=== PATIENT | female | born 1930 | race Caucasian/White ===

== ENCOUNTER 2017-11-09 13:55 | Inpatient (IN) ==
[2017-11-09] MEDS ORDERED: PHENERGAN 25 MG/ML VIAL 12.5 MG in SODIUM CHLORIDE 50 ML IV STA (14:17)
[2017-11-09] MEDS ORDERED: PHENERGAN 25 MG/ML VIAL ONE (14:20)
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
[2017-11-09] MEDS ORDERED: NORCO 10-325 PO STA (16:51)
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
[2017-11-09] MEDS ORDERED: MORPHINE 4 MG/ML SYRINGE IVP PRN (17:18)
[2017-11-09] MEDS: SODIUM CHLORIDE 1,000 ML IV SCH (17:54)
[2017-11-09 18:14] VITALS: BMI 24.4
[2017-11-09] MEDS: NORCO 10-325 PO PRN (21:05)
[2017-11-10] MEDS: NORCO 10-325 PO PRN ×5 (00:56→22:02)
[2017-11-10] MEDS: CREON DR 12,000 UNITS CAPSULE PO SCH ×3 (08:16→16:37)
[2017-11-10] MEDS: LOVENOX SUBCUT SCH (08:48)
[2017-11-10] MEDS: BYSTOLIC PO SCH (09:00)
[2017-11-10] MEDS ORDERED: NON-FORMULARY MEDICATION (Nebivolol Hcl [Bystolic] 20 MG) PO SCH (09:00)
[2017-11-10] MEDS: HYDROCHLOROTHIAZIDE PO SCH (09:01)
[2017-11-10] MEDS: NORVASC PO SCH (09:01)
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
[2017-11-10] MEDS ORDERED: CREON DR 12,000 UNITS CAPSULE PO SCH (12:00)
[2017-11-10] MEDS ORDERED: PHENERGAN 25 MG/ML VIAL ONE (12:11)
[2017-11-10] MEDS: PHENERGAN 25 MG/ML VIAL 12.5 MG in SODIUM CHLORIDE 50 ML IV PRN (12:17)
[2017-11-10] MEDS ORDERED: [UNRECOGNIZED DRUG - OTHER] PO SCH (13:45)
[2017-11-10] MEDS: NON-FORMULARY MEDICATION (Cholecalciferol (Vitamin D3) [Vitamin D3] 1,000 UNIT) PO SCH (14:35)
[2017-11-10] MEDS: NON-FORMULARY MEDICATION (Vitamin B Complex [Vitamin B Complex] 1 EACH) PO SCH (14:35)
[2017-11-10] MEDS: SODIUM CHLORIDE 1,000 ML IV SCH (17:53)
[2017-11-11] MEDS: NORCO 10-325 PO PRN ×5 (02:16→22:20)
[2017-11-11] MEDS: PROTONIX PO SCH (05:36)
[2017-11-11] MEDS: BYSTOLIC PO SCH (08:16)
[2017-11-11] MEDS: HYDROCHLOROTHIAZIDE PO SCH (08:16)
[2017-11-11] MEDS: NORVASC PO SCH (08:16)
[2017-11-11] MEDS: CREON DR 12,000 UNITS CAPSULE PO SCH ×3 (08:16→16:44)
[2017-11-11] MEDS: [UNRECOGNIZED DRUG - OTHER] PO SCH (08:19)
[2017-11-11] MEDS: LOVENOX SUBCUT SCH (08:19)
[2017-11-11] MEDS: MIRALAX PO SCH (09:52)
[2017-11-11] MEDS: NON-FORMULARY MEDICATION (Vitamin B Complex [Vitamin B Complex] 1 EACH) PO SCH (12:07)
[2017-11-11] MEDS: NON-FORMULARY MEDICATION (Cholecalciferol (Vitamin D3) [Vitamin D3] 1,000 UNIT) PO SCH (12:08)
[2017-11-11] MEDS: [UNRECOGNIZED DRUG - OTHER] PO SCH (15:37)
[2017-11-11] MEDS ORDERED: PHENERGAN 25 MG/ML VIAL ONE (17:56)
[2017-11-11] MEDS ORDERED: SODIUM CHLORIDE 50 ML IV ONE (18:04)
[2017-11-11] MEDS: SODIUM CHLORIDE 1,000 ML IV SCH (22:20)
[2017-11-12] MEDS: NORCO 10-325 PO PRN ×3 (03:03→21:19)
[2017-11-12] MEDS: PROTONIX PO SCH (05:41)
[2017-11-12] MEDS: BYSTOLIC PO SCH (08:15)
[2017-11-12] MEDS: CREON DR 12,000 UNITS CAPSULE PO SCH ×3 (08:15→16:42)
[2017-11-12] MEDS: [UNRECOGNIZED DRUG - OTHER] PO SCH (08:15)
[2017-11-12] MEDS: MIRALAX PO SCH (08:16)
[2017-11-12] MEDS: HYDROCHLOROTHIAZIDE PO SCH (08:16)
[2017-11-12] MEDS: NORVASC PO SCH (08:16)
[2017-11-12] MEDS: LOVENOX SUBCUT SCH (08:17)
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
[2017-11-12] MEDS ORDERED: PHENERGAN 25 MG/ML VIAL ONE (11:25)
[2017-11-12] MEDS: PHENERGAN 25 MG/ML VIAL 12.5 MG in SODIUM CHLORIDE 50 ML IV PRN (11:33)
[2017-11-12] MEDS: NON-FORMULARY MEDICATION (Cholecalciferol (Vitamin D3) [Vitamin D3] 1,000 UNIT) PO SCH (12:09)
[2017-11-12] MEDS: [UNRECOGNIZED DRUG - OTHER] PO SCH (12:09)
[2017-11-12] MEDS: NON-FORMULARY MEDICATION (Vitamin B Complex [Vitamin B Complex] 1 EACH) PO SCH (12:10)
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
[2017-11-13] MEDS: NORCO 10-325 PO PRN ×2 (03:48→10:04)
[2017-11-13] MEDS: PROTONIX PO SCH (06:05)
[2017-11-13] MEDS: [UNRECOGNIZED DRUG - OTHER] PO SCH (08:15)
[2017-11-13] MEDS: BYSTOLIC PO SCH (08:26)
[2017-11-13] MEDS: CREON DR 12,000 UNITS CAPSULE PO SCH ×2 (08:29→12:53)
[2017-11-13] MEDS: HYDROCHLOROTHIAZIDE PO SCH (08:30)
[2017-11-13] MEDS: NORVASC PO SCH (08:30)
[2017-11-13] MEDS: LOVENOX SUBCUT SCH (08:31)
[2017-11-13] MEDS: MIRALAX PO SCH (08:34)
[2017-11-13 09:38] VITALS: TEMP 98.1
[2017-11-13] MEDS: SODIUM CHLORIDE 1,000 ML IV SCH (10:54)
[2017-11-13] MEDS: PHENERGAN 25 MG/ML VIAL 12.5 MG in SODIUM CHLORIDE 50 ML IV PRN (11:38)
[2017-11-13] MEDS: NON-FORMULARY MEDICATION (Vitamin B Complex [Vitamin B Complex] 1 EACH) PO SCH (12:53)
[2017-11-13] MEDS: NON-FORMULARY MEDICATION (Cholecalciferol (Vitamin D3) [Vitamin D3] 1,000 UNIT) PO SCH (12:53)
[2017-11-13] MEDS: [UNRECOGNIZED DRUG - OTHER] PO SCH (12:56)
[2017-11-13 14:31] VITALS: BP 89/53
--- NOTE | 2017-11-14 08:29 | PN ---
DATE OF VISIT: 11/13/17 SUBJECTIVE: Ms. Mcgraw pain is controlled and she is getting some nausea we felt from the higher dose of [place]. We are going to increase that. At this point the patient has continued to require assistance with activities partially getting up out of the chair or bed or going to the bathroom. We are going to transition her to swing bed for continued pain control and physical therapy. MTDD
== END 2017-11-13 15:15 | disposition swing bed (61) | DRG 184 ==
LOC: ED 13:55 → MEDSURG B 17:18
PROVIDERS: ADMIT Family Medicine; ATTEND Family Medicine
DX: S22.42XA Multiple fractures of ribs, left side, initial encounter for closed fracture (principal); K86.1 Other chronic pancreatitis; V49.49XA Driver injured in collision with other motor vehicles in traffic accident, initial encounter; Y92.410 Unspecified street and highway as the place of occurrence of the external cause; R07.9 Chest pain, unspecified; K27.9 Peptic ulcer, site unspecified, unspecified as acute or chronic, without hemorrhage or perforation; I10 Essential (primary) hypertension
CPT/HCPCS: 36415; 80048; 80053; 82150; 83690; 85025; 96365; 97802; 99283

== ENCOUNTER 2017-11-13 15:57 | Inpatient (IN) ==
[2017-11-13] MEDS ORDERED: MORPHINE 4 MG/ML SYRINGE IVP PRN (16:16)
[2017-11-13] MEDS ORDERED: PHENERGAN 25 MG/ML VIAL 12.5 MG in SODIUM CHLORIDE 50 ML IV PRN (16:19)
[2017-11-13] MEDS: CREON DR 12,000 UNITS CAPSULE PO SCH (17:21)
[2017-11-13] MEDS: NORCO 5-325 PO PRN (19:43)
[2017-11-13] MEDS: NEURONTIN PO SCH (20:38)
[2017-11-13] MEDS ORDERED: CREON DR 12,000 UNITS CAPSULE PO SCH (21:00)
[2017-11-14] MEDS: NORCO 5-325 PO PRN ×5 (00:03→21:01)
[2017-11-14] MEDS: PROTONIX PO SCH (05:47)
[2017-11-14] MEDS: CREON DR 12,000 UNITS CAPSULE PO SCH ×3 (08:32→17:20)
[2017-11-14] MEDS: BYSTOLIC PO SCH (08:33)
[2017-11-14] MEDS: HYDROCHLOROTHIAZIDE PO SCH (08:34)
[2017-11-14] MEDS: NORVASC PO SCH (08:35)
[2017-11-14] MEDS: LOVENOX SUBCUT SCH (08:35)
[2017-11-14] MEDS: MIRALAX PO SCH (08:41)
[2017-11-14] MEDS: NEURONTIN PO SCH ×3 (08:49→20:58)
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
[2017-11-14] MEDS ORDERED: NON-FORMULARY MEDICATION (Nebivolol Hcl [Bystolic] 20 MG) PO SCH (09:00)
--- NOTE | 2017-11-14 11:30 | RS.PTINEVL ---
Subjective - Patient information Date of Evaluation: 11/14/17 Date of Arrival on Unit: 11/13/17 Admitted From:: In-House Transfer (swing bed) Diagnosis: L mult rib fx. Usual Living Arrangement: Alone Living Arrangement Comments: Lives in her own home alone. Pt did not walk with an assistive device. 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 Home Environment: House, Stairs (few), No rail Medical History: Arthritis, Cancer (breast CA) Medical History Comments:: h/o DVT LATEX ALLERGY?: No Surgical History: Knee Replacement, Hysterectomy Surgical History Comments:: R TKR Medications: see chart Subjective Information/ Patient Comments:: pt states she is still having severe pain with any movement. States she needs to be able to get out of bed on her own to go home. - Level of function Prior to this admission, the patient could do the following:: Independent Selfcare, Independent ADL's, Independent Ambulation, Participated in Social Activities Outside home, Volunteer/Work Current Level of Function: Partially Dependent Pain Assessement - Location L ribs Description: Sharp, Acute Intensity: 4 Pain Behavior: Moaning, Facial Grimacing Pain Aggravating Factors: Changing Position, Exercise/Activity, Standing Pain Alleviating Factors: Medication Interventions - Objective Patient Orientation: Person, Place, Time, Situation Observation: pt continues with bruising and non pitting edema BLE Range of Motion - ROM Right Upper Extremity AROM: Slight limitation (R shld flex/abd limited) Left Upper Extremity AROM: Slight limitation (shld ROM limited due to pain in ribs) Right Lower Extremity AROM: WFL's Left Lower Extremity AROM: WFL's Muscle Strength - Muscle Strength Right Upper Extremity Strength: Mild Weakness (shld flex 3-/5, elbow flex/ext 4- /5) Left Upper Extremity Strength: Mild Weakness (shld flex 3-/5, elbow flex/ext 4-/ 5) Right Lower Extremity Strength: Mild Weakness (hip flex 4/5, knee flex/ext 4+/5 , ankle DF/PF 4+/5) Left Lower Extremity Strength: Mild Weakness (hip flex 4-/5, knee flex/ext 4-/5 , ankle 4/5) Sensation - Sensation Right Upper Extremity Sensation: Intact/Normal Left Upper Extremity Sensation: Intact/Normal Right Lower Extremity Sensation: Intact/Normal Left Lower Extremity Sensation: Intact/Normal Palpation Palpation Findings: Tenderness (tenderness to thoracic spine. ), None/Normal Balance - Sitting Balance and Reactions Static Sitting Balance: Good Dynamic Sitting Balance: Fair Sitting Equilibrium Reactions: Delayed Left, Delayed Right Sitting Protective Reactions: Delayed Left, Delayed Right - Standing Balance and Reactions Static Standing Balance: Fair Dynamic Standing Balance: Fair Standing Equilibrium Reactions: Delayed Left, Delayed Right Standing Protective Reactions: Delayed Left, Delayed Right - Comments Balance Assessment Comments: pt with no LOB during gait. Functional Mobility - Bed Mobility Rolling R/L: Mod Assist Supine to Sit: Mod Assist, 1 person assist - Transfers Sit to Stand: CGA Stand to Sit: CGA - Safety Awareness Safety Awareness: Fair PACO INDEX SCORE: 62 Ambulation - Ambulation Assistive Device Used: Rolling Walker Orthotic/Prosthetic Device: No Distance: 250 Assistance needed with Ambulation: [facility] Gait Deviations: Narrow Based gait, Forward posture, Short stride Ambulation Comments: pt also amb with slight antalgic gait pattern. Factors Affecting Ambulation: Decreased Balance, Pain, Weakness, Decreased ROM, Decreased Safety, Limited Endurance Treatment time - Time with patient Total treatment time: 28 Patient Education - Education Patient Education: Home Exercise Program, Education of Plan of Care Teaching Recipient: Patient Teaching Methods: Discussion (discussion with patient regarding POC as well as goals for stay.) Assessment - Assessment Problem List:: Decreased level of function, Requires training/education, Decreased safety/Risk of falls, Weakness, Pain limits previous level of function Rehab Potential: Good Further Therapy Indicated?: Yes Evaluation Complexity: HISTORY: Medium (rib fx, OA, age), EXAM OF BODY SYSTEMS: Medium (posture, strength, ROM, gait), CLINICAL PRESENTATION: Medium (evolving) , CLINICAL DECISION MAKING: Medium Short Term Goals GOAL #1: pt demonstrate rolling and bridging with min x 1 Goal to be met by: 11/19/17 GOAL #2: Transfer sup to/from sit min x 1, sit to/from stand SBA Goal to be met by: 11/19/17 GOAL #3: pt amb 250ft with rwx with SBA to CGA with no LOB with improved posture Goal to be met by: 11/19/17 GOAL #4: Improve BLE strength 4 to 4+/5 Goal to be met by: 11/20/17 [employer] Goals GOAL #1: pt transferred sup to/from sit to/from stand independently Goal to be met by: 11/24/17 GOAL #2: pt amb functional distances with AD with no LOB independently Goal to be met by: 11/24/17 GOAL #3: pt independent with all bed mobility Goal to be met by: 11/24/17 Plan Plan of Care: Therapeutic EX, Therapeutic Activity Other:: gait training Frequency of Treatment: 1-2 X day, as tolerated Duration of Treatment: 10 days Anticipated Discharge Destination: Home Treatment Diagnosis (ICD 10 Codes): R26.2 difficulty walking. M62.81 generalized weakness Has the Physician been added for Co-signature?: Yes
[2017-11-14] MEDS: NON-FORMULARY MEDICATION (Cholecalciferol (Vitamin D3) [Vitamin D3] 1,000 UNIT) PO SCH (12:03)
[2017-11-14] MEDS: [UNRECOGNIZED DRUG - OTHER] PO SCH (12:03)
[2017-11-14] MEDS: NON-FORMULARY MEDICATION (Vitamin B Complex [Vitamin B Complex] 1 EACH) PO SCH (12:04)
--- NOTE | 2017-11-14 15:01 | RS.OTINEVL ---
Subjective - Patient information Date of Evaluation: 11/14/17 Date of Arrival on Unit: 11/13/17 Admitted From:: In-House Transfer (swing bed) Usual Living Arrangement: Alone Living Arrangement Comments: Lives in her own home alone. Pt did not walk with an assistive device. 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 Home Environment: House, Stairs (few), No rail Medical History: Arthritis, Cancer (breast CA) Medical History Comments:: h/o DVT, has a filter LATEX ALLERGY?: No Surgical History: Knee Replacement, Hysterectomy Surgical History Comments:: R TKR Medications: see chart Subjective Information/ Patient Comments:: "I am going to have to yell." " I can 't help it." - Level of function Prior to this admission, the patient could do the following:: Independent Selfcare, Independent ADL's, Independent Ambulation, Participated in Social Activities Outside home, Volunteer/Work Abilities prior to this admission: Pt lives alone in her home. Pt was not using an assistive device. 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 Pt is very active and goes to all basketball games and baseball games in the area. Pt was independence with all ADLS. Current Level of Function: Partially Dependent Current Equipment Used at Home: none Pain Assessment - Pain Pain Score: 3 Side: left Pain Location Body Site: Back Pain Aggravating Factors: ADL's, Changing Position, Exercise/Activity, Standing , Sitting, Walking Pain Alleviating Factors: Ice (US, and Electrical stimulation added to patient. ), Medication, Inactivity, Lying Supine Interventions - Objective Patient Orientation: Person, Place, Time, Situation Current Interventions: IV's, Oxygen Observation: Pt has bruising on her face that is going away. Bruising found on her Right knee and it is changing to other colors. Pt is improving in her mobility. Pt continues with difficulty in reaching. Interventions - ROM Right Upper Extremity AROM: Moderate limitation Left Upper Extremity AROM: Slight limitation - Strength Right Upper Extremity Strength: Severe Weakness Left Upper Extremity Strength: Mild Weakness - Sensation Right Upper Extremity Sensation: Intact/Normal Left Upper Extremity Sensation: Intact/Normal Balance - Sitting Balance Static Sitting Balance: Fair Dynamic Sitting Balance: Fair - Standing Balance Static Standing Balance: Fair Dynamic Standing Balance: Fair ADL Skills - Self Feeding Self Feeding: Independent - Grooming Grooming: CGA, Min Assist - Bathing Bathing UE: Min Assist Bathing LE: Min Assist - Dressing Dressing UE: Min Assist Dressing LE: Min Assist - Toilet Management Toileting Management: CGA Functional Mobility - Bed Mobility Rolling R/L: Min Assist Scooting: Min Assist Supine to Sit: Mod Assist Sit to Supine: Mod Assist - Transfers Sit to Stand: Min Assist, 1 person assist Stand to Sit: Min Assist, 1 person assist Stand Pivot Transfers: Min Assist, 1 person assist - Ambulation Weight Bearing Status: FWB Assistive Device Used: Rolling Walker Assistance needed with Ambulation: CGA, 1 person assist - Safety Awareness Safety Awareness: Good PACO INDEX SCORE: 62 Additional Treatment Performed - Additional units charged ADL: 15 - Time with patient Total treatment time: 39 Activities Patient Interests:: Reading Books/Magazines, Watching Television, Puzzles/Games , Visiting/Socializing Patient Education Patient Education: Education of diagnosis, Home Safety, Education of Plan of Care Teaching Recipient: Patient Teaching Methods: Discussion Assessment Problem List:: Decreased level of function, Requires training/education, Decreased safety/Risk of falls, Weakness, Pain limits previous level of function Rehab Potential: Good Further Therapy Indicated?: Yes Evaluation Complexity: HISTORY: Medium, EXAM OF BODY SYSTEMS: Medium, CLINICAL DECISION MAKING: Medium Short Term Goals - Goals GOAL 1: Pt to be able to pick her hair with the LUE (I) Goal to be met by: 11/14/17 Progress towards goal: Met GOAL 2: Pt to be able to complete sink level ADLS (Mod-I). Goal to be met by: 11/14/17 Progress towards goal: Partially Met GOAL 3: Pt to be able to complete functional mobility (Mod-I). Goal to be met by: 10/15/17 Progress towards goal: Partially Met [facility] Goals GOAL 1: Pt to increase independence of ADLS to Mod-I. Goal to be met by: 11/19/17 Progress towards goal: Partially Met GOAL 2: Pt to increase dyn. std. balance to Good for 20 minutes. Goal to be met by: 11/19/17 Progress towards goal: Partially Met GOAL 3: Pt to increase LUE reaching to 4+/5. Goal to be met by: 11/19/17 Progress towards goal: Progressing Plan Plan of Care: Therapeutic EX, Neuromuscular Re-Educ, Therapeutic Activity, Self- Care/Home Management Frequency of Treatment: 1-2 X day, as tolerated Duration of Treatment: 2 Weeks Anticipated Discharge Destination: Home Treatment Diagnosis (ICD 10 Codes): M62.81 Muscle weakness, Shoulder pain M25.511, M25.512, Has the Physician been added for Co-signature?: Yes
[2017-11-15] MEDS: NORCO 5-325 PO PRN ×4 (01:23→22:56)
[2017-11-15] MEDS: PROTONIX PO SCH (05:46)
[2017-11-15] MEDS: [UNRECOGNIZED DRUG - OTHER] PO SCH (08:22)
[2017-11-15] MEDS: MIRALAX PO SCH (08:23)
[2017-11-15] MEDS: LIDODERM PATCH 5% TP SCH (08:29)
[2017-11-15] MEDS: BYSTOLIC PO SCH (08:31)
[2017-11-15] MEDS: CREON DR 12,000 UNITS CAPSULE PO SCH ×3 (08:31→18:09)
[2017-11-15] MEDS: HYDROCHLOROTHIAZIDE PO SCH (08:32)
[2017-11-15] MEDS: NORVASC PO SCH (08:32)
[2017-11-15] MEDS: NEURONTIN PO SCH ×3 (08:32→20:25)
[2017-11-15] MEDS: LOVENOX SUBCUT SCH (08:34)
[2017-11-15] MEDS: NON-FORMULARY MEDICATION (Vitamin B Complex [Vitamin B Complex] 1 EACH) PO SCH (12:33)
[2017-11-15] MEDS: NON-FORMULARY MEDICATION (Cholecalciferol (Vitamin D3) [Vitamin D3] 1,000 UNIT) PO SCH (12:34)
[2017-11-15] MEDS: [UNRECOGNIZED DRUG - OTHER] PO SCH (12:34)
[2017-11-16] MEDS: NORCO 5-325 PO PRN ×3 (04:00→22:17)
[2017-11-16] MEDS: PROTONIX PO SCH (05:35)
[2017-11-16] MEDS: CREON DR 12,000 UNITS CAPSULE PO SCH ×3 (08:29→16:42)
[2017-11-16] MEDS: BYSTOLIC PO SCH (08:29)
[2017-11-16] MEDS: HYDROCHLOROTHIAZIDE PO SCH (08:30)
[2017-11-16] MEDS: [UNRECOGNIZED DRUG - OTHER] PO SCH (08:30)
[2017-11-16] MEDS: NEURONTIN PO SCH ×3 (08:30→21:11)
[2017-11-16] MEDS: NORVASC PO SCH (08:30)
[2017-11-16] MEDS: LIDODERM PATCH 5% TP SCH (08:30)
[2017-11-16] MEDS: LOVENOX SUBCUT SCH (08:31)
[2017-11-16] MEDS: MIRALAX PO SCH (08:31)
[2017-11-16] MEDS: [UNRECOGNIZED DRUG - OTHER] PO SCH (12:19)
[2017-11-16] MEDS: NON-FORMULARY MEDICATION (Vitamin B Complex [Vitamin B Complex] 1 EACH) PO SCH (12:19)
[2017-11-16] MEDS: NON-FORMULARY MEDICATION (Cholecalciferol (Vitamin D3) [Vitamin D3] 1,000 UNIT) PO SCH (12:19)
[2017-11-17] MEDS: NORCO 5-325 PO PRN ×3 (02:56→20:55)
[2017-11-17] MEDS: PROTONIX PO SCH (06:06)
[2017-11-17] MEDS: LIDODERM PATCH 5% TP SCH (08:07)
[2017-11-17] MEDS: CREON DR 12,000 UNITS CAPSULE PO SCH ×3 (08:07→16:54)
[2017-11-17] MEDS: BYSTOLIC PO SCH (08:07)
[2017-11-17] MEDS: LOVENOX SUBCUT SCH (08:08)
[2017-11-17] MEDS: HYDROCHLOROTHIAZIDE PO SCH (08:08)
[2017-11-17] MEDS: MIRALAX PO SCH (08:11)
[2017-11-17] MEDS: NORVASC PO SCH (08:11)
[2017-11-17] MEDS: NEURONTIN PO SCH ×3 (08:11→20:55)
[2017-11-17] MEDS: [UNRECOGNIZED DRUG - OTHER] PO SCH (08:12)
--- NOTE | 2017-11-17 11:35 | US ---
EXAM: Left lower extremity venous Doppler History: Left lower extremity pain and edema. Technique: Multiple sonographic images through the left lower extremity were obtained. Color duplex Doppler was used to interrogate vascular flow. Findings: The left common femoral, greater saphenous, profunda, superficial femoral, popliteal, dinah anna, posterior tibial and anterior tibial veins demonstrate spontaneous flow with normal compression and normal augmentation. There is left lower extremity subcutaneous edema. Impression: No sonographic evidence for deep venous thrombosis.
[2017-11-17] MEDS: NON-FORMULARY MEDICATION (Cholecalciferol (Vitamin D3) [Vitamin D3] 1,000 UNIT) PO SCH (11:50)
[2017-11-17] MEDS: [UNRECOGNIZED DRUG - OTHER] PO SCH (11:50)
[2017-11-17] MEDS: NON-FORMULARY MEDICATION (Vitamin B Complex [Vitamin B Complex] 1 EACH) PO SCH (11:51)
[2017-11-18] MEDS: NORCO 5-325 PO PRN ×3 (01:44→09:32)
[2017-11-18 05:01] VITALS: BP 109/62; TEMP 98.3
[2017-11-18] MEDS: PROTONIX PO SCH (05:33)
[2017-11-18] MEDS: BYSTOLIC PO SCH (08:04)
[2017-11-18] MEDS: LIDODERM PATCH 5% TP SCH (08:06)
[2017-11-18] MEDS: HYDROCHLOROTHIAZIDE PO SCH (08:06)
[2017-11-18] MEDS: CREON DR 12,000 UNITS CAPSULE PO SCH (08:06)
[2017-11-18] MEDS: MIRALAX PO SCH (08:09)
[2017-11-18] MEDS: NEURONTIN PO SCH (08:09)
[2017-11-18] MEDS: NORVASC PO SCH (08:10)
[2017-11-18] MEDS: LOVENOX SUBCUT SCH (08:11)
[2017-11-18] MEDS: [UNRECOGNIZED DRUG - OTHER] PO SCH (08:11)
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
== END 2017-11-18 12:13 | disposition home or self-care (01) | DRG 184 ==
LOC: MEDSURG B 15:57
PROVIDERS: ADMIT Family Medicine; ATTEND Family Medicine
DX: S22.42XA Multiple fractures of ribs, left side, initial encounter for closed fracture (principal); K86.1 Other chronic pancreatitis; I10 Essential (primary) hypertension; V49.49XA Driver injured in collision with other motor vehicles in traffic accident, initial encounter; Y92.410 Unspecified street and highway as the place of occurrence of the external cause; R07.89 Other chest pain; K27.9 Peptic ulcer, site unspecified, unspecified as acute or chronic, without hemorrhage or perforation
CPT/HCPCS: 97802